=== PATIENT | female | born 1940 | race Caucasian/White ===

== ENCOUNTER 2019-03-01 13:53 | Observation (INO) ==
[2019-03-01 14:37] LABS: Basophils # 0.1 10*3/uL (0.0-0.2); Basophils % 0.6 % (0.0-0.8); Eosinophils # 0.4 10*3/uL (0.0-0.87); Eosinophils % 3.5 % (0.00-10.9); Hemoglobin 12.4 GM/DL (12.0-16.0); Immature Granulocytes % 0.4 %; Immature Granulocytes Absolute 0.04 #; Lymphocytes # 1.4 10*3/uL (1.4-4.0); Lymphocytes % 13.2 % (21.3-54.2); Mean Corpuscular Volume 90.5 FL (87-102); Mean Platelet Volume 9.9 FL (9.6-12.0); Monocytes % 7.5 % (1.7-12.7); Neutrophils % 74.8 % (38.7-73.9); Platelet Count 330 T/CUMM (130-400); Red Blood Count 4.42 MC/CUMM (3.8-5.5); White Blood Count 10.3 T/CUMM (4-12)
[2019-03-01 14:58] LABS: PT Patient Result 10.6 SECS
[2019-03-01 15:11] LABS: Alanine Aminotransferase 17 U/L (13-56); Alkaline Phosphatase 79 U/L (45-117); Aspartate Amino Transferase 18 U/L (0-37); Blood Urea Nitrogen 11 MG/DL (7-18); Calcium 9.4 MG/DL (8.5-10.1); Glucose 318 MG/DL (74-106); Osmolality,Calculated 283.8 MOS/KG (273-304); Total Protein 7.6 G/DL (6.4-8.3); Troponin I < 0.015 NG/ML (0.00-0.045)
[2019-03-01] MEDS ORDERED: SODIUM CHLORIDE 0.9% 1,000 ML IV SCH (18:56)
[2019-03-01] MEDS ORDERED: DEXTROSE 50% 25 GM/50 ML VIAL IV PRN (18:56)
[2019-03-01] MEDS ORDERED: ACETAMINOPHEN 325 MG TABLET PO PRN ×2 (18:56→19:32)
[2019-03-01] MEDS ORDERED: ONDANSETRON 4 MG/2 ML VIAL IV PRN (18:56)
[2019-03-01] MEDS ORDERED: GLUCAGON 1 MG VIAL IM PRN (18:56)
[2019-03-01] MEDS ORDERED: ALBUTEROL 2.5 MG/3 ML NEB RESP TX PRN (19:32)
[2019-03-01] MEDS ORDERED: NITROGLYCERIN SL 0.4 MG TABLET SL PRN (19:32)
[2019-03-01] MEDS ORDERED: MAGNESIUM SULF RIDER 2 GM in PREMIX 1 EACH IV ONE (19:52)
[2019-03-01 21:30] LABS: Apearance,Urine CLEAR (Clear); Bacteria,Urine Occasional /HPF (Few); Bilirubin,Urine Negative (Negative); Blood, Urine Negative (Negative); Glucose,Urine (UA) 150 mg/dL (Negative); Hyaline Casts,Urine 4 /LPF (0-3); Ketones,Urine Negative (Negative); Mucus,Urine Occasional /LPF (Occasional); Nitrite,Urine Negative (Negative); Protein,Urine Negative; RBC,Urine <1 /HPF (0-4); Squamous Epithelial Cell,Urine Occasional /HPF (0-10); Urine Color Yellow (Yellow); Urine Specific Gravity 1.014 (1.001-1.035); Urine Urobilinogen < 2.0 EU/DL (0.2-1.0); WBC,Urine <1 /HPF (0-6)
[2019-03-01] MEDS: INSULIN LISPRO 100 UNIT/ML SUBCUT SCH (21:56)
[2019-03-01] MEDS: ROSUVASTATIN 10 MG TABLET PO SCH (21:57)
[2019-03-01] MEDS: CILOSTAZOL 50 MG TABLET PO SCH (21:57)
[2019-03-01] MEDS: POTASSIUM CHLORIDE 10 MEQ TABLET PO SCH (21:57)
[2019-03-01] MEDS: DOCUSATE SODIUM 100 MG CAPSULE PO SCH (21:57)
[2019-03-01] MEDS: INSULIN GLARGINE 100 UNIT/ML SUBCUT SCH (21:58)
[2019-03-01] MEDS: MAGNESIUM SULF INJ 2 GM, POTASSIUM CHLORIDE INJ 20 MEQ in SODIUM CHLORIDE 0.9% 1,000 ML IV SCH (22:00)
[2019-03-02 04:28] LABS: Basophils # 0.1 10*3/uL (0.0-0.2); Basophils % 0.6 % (0.0-0.8); Eosinophils # 0.4 10*3/uL (0.0-0.87); Eosinophils % 3.9 % (0.00-10.9); Hematocrit 36.4 VOL% (35.7-47.0); Hemoglobin 11.4 GM/DL (12.0-16.0); Immature Granulocytes % 0.4 %; Immature Granulocytes Absolute 0.04 #; Lymphocytes # 2.1 10*3/uL (1.4-4.0); Lymphocytes % 20.6 % (21.3-54.2); Mean Corpuscular HGB Conc 31.3 GM/DL (32-36); Mean Corpuscular Volume 89.9 FL (87-102); Mean Platelet Volume 10.3 FL (9.6-12.0); Monocytes % 9.9 % (1.7-12.7); Neutrophils % 64.6 % (38.7-73.9); Platelet Count 293 T/CUMM (130-400); Red Blood Count 4.05 MC/CUMM (3.8-5.5); Red Cell Distribution Width 13.1 % (9.3-17.3); White Blood Count 10.2 T/CUMM (4-12)
[2019-03-02] MEDS: MAGNESIUM SULF INJ 2 GM, POTASSIUM CHLORIDE INJ 20 MEQ in SODIUM CHLORIDE 0.9% 1,000 ML IV SCH ×3 (04:30→21:13)
[2019-03-02 04:55] LABS: Albumin 3.1 G/DL (3.4-5.0); Bilirubin,Total 0.4 MG/DL (0.2-1.0); Calcium 8.5 MG/DL (8.5-10.1); Free T4 (Free Thyroxine) 1.32 NG/DL (0.76-1.46); Risk Ratio 2.19; Thyroid Stimulating Hormone 0.995 uIU/ml (0.358-3.74); VLDL CHOLESTEROL 23.2 MG/DL
[2019-03-02 05:40] LABS: Sedimentation Rate-Westergren 22 MM/HR (0-30)
[2019-03-02] MEDS: LEVOTHYROXINE 50 MCG TABLET PO SCH (06:38)
[2019-03-02] MEDS: INSULIN LISPRO 100 UNIT/ML SUBCUT SCH ×4 (08:07→21:09)
[2019-03-02] MEDS: PREGABALIN 25 MG CAPSULE PO SCH ×2 (09:44→21:08)
[2019-03-02] MEDS: glipiZIDE 5 MG TABLET PO SCH (09:47)
[2019-03-02] MEDS: LOSARTAN 25 MG TABLET PO SCH (09:47)
[2019-03-02] MEDS: CILOSTAZOL 50 MG TABLET PO SCH ×2 (09:47→21:07)
[2019-03-02] MEDS: DOCUSATE SODIUM 100 MG CAPSULE PO SCH ×2 (09:47→20:57)
[2019-03-02] MEDS: POTASSIUM CHLORIDE 10 MEQ TABLET PO SCH ×2 (09:47→21:08)
[2019-03-02] MEDS: ASPIRIN CHEW 81 MG TABLET PO SCH (09:47)
[2019-03-02] MEDS: ISOSORBIDE MONONITRATE 30 MG TABLET PO SCH (09:47)
[2019-03-02] MEDS: PANTOPRAZOLE 40 MG TABLET PO SCH (09:47)
[2019-03-02] MEDS: CLOPIDOGREL 75 MG TABLET PO SCH (09:47)
[2019-03-02] MEDS: CHOLECALCIFEROL 5,000 UNIT TABLET PO SCH (09:48)
[2019-03-02] MEDS: amLODIPine 5 MG TABLET PO PRN (12:42)
[2019-03-02] MEDS ORDERED: glipiZIDE 5 MG TABLET PO SCH (19:00)
[2019-03-02] MEDS: ATENOLOL 50 MG TABLET PO SCH (21:07)
[2019-03-02] MEDS: ROSUVASTATIN 10 MG TABLET PO SCH (21:08)
[2019-03-02] MEDS: INSULIN GLARGINE 100 UNIT/ML SUBCUT SCH (21:10)
[2019-03-02] MEDS: ESCITALOPRAM 10 MG TABLET PO SCH (21:11)
[2019-03-03] MEDS: amLODIPine 5 MG TABLET PO PRN (00:20)
[2019-03-03 05:14] LABS: Basophils # 0.1 10*3/uL (0.0-0.2); Basophils % 0.8 % (0.0-0.8); Eosinophils # 0.5 10*3/uL (0.0-0.87); Eosinophils % 5.2 % (0.00-10.9); Hematocrit 34.8 VOL% (35.7-47.0); Hemoglobin 10.8 GM/DL (12.0-16.0); Immature Granulocytes % 0.3 %; Immature Granulocytes Absolute 0.03 #; Lymphocytes # 1.8 10*3/uL (1.4-4.0); Lymphocytes % 19.7 % (21.3-54.2); Mean Corpuscular Volume 90.9 FL (87-102); Mean Platelet Volume 10.4 FL (9.6-12.0); Monocytes % 9.7 % (1.7-12.7); Neutrophils % 64.3 % (38.7-73.9); Platelet Count 292 T/CUMM (130-400); Red Blood Count 3.83 MC/CUMM (3.8-5.5); Red Cell Distribution Width 13.2 % (9.3-17.3)
[2019-03-03 06:02] LABS: Bilirubin,Total 0.5 MG/DL (0.2-1.0); Total Protein 6.1 G/DL (6.4-8.3)
[2019-03-03] MEDS: LEVOTHYROXINE 50 MCG TABLET PO SCH (06:17)
[2019-03-03] MEDS: DOCUSATE SODIUM 100 MG CAPSULE PO SCH ×2 (09:00→21:07)
[2019-03-03] MEDS: ISOSORBIDE MONONITRATE 30 MG TABLET PO SCH (09:00)
[2019-03-03] MEDS: PREGABALIN 25 MG CAPSULE PO SCH ×2 (09:00→21:05)
[2019-03-03] MEDS: CHOLECALCIFEROL 5,000 UNIT TABLET PO SCH (09:00)
[2019-03-03] MEDS: ASPIRIN CHEW 81 MG TABLET PO SCH (09:00)
[2019-03-03] MEDS: CILOSTAZOL 50 MG TABLET PO SCH ×2 (09:00→21:04)
[2019-03-03] MEDS ORDERED: FUROSEMIDE 20 MG TABLET PO SCH (09:00)
[2019-03-03] MEDS: LOSARTAN 25 MG TABLET PO SCH (09:01)
[2019-03-03] MEDS: CLOPIDOGREL 75 MG TABLET PO SCH (09:01)
[2019-03-03] MEDS: MAGNESIUM SULF INJ 2 GM, POTASSIUM CHLORIDE INJ 20 MEQ in SODIUM CHLORIDE 0.9% 1,000 ML IV SCH ×2 (09:02→15:07)
[2019-03-03] MEDS: glipiZIDE 5 MG TABLET PO SCH (09:02)
[2019-03-03] MEDS: POTASSIUM CHLORIDE 10 MEQ TABLET PO SCH ×2 (09:02→21:05)
[2019-03-03] MEDS: PANTOPRAZOLE 40 MG TABLET PO SCH (09:02)
[2019-03-03] MEDS: INSULIN LISPRO 100 UNIT/ML SUBCUT SCH ×4 (09:13→21:06)
[2019-03-03] MEDS: ATENOLOL 50 MG TABLET PO SCH (21:04)
[2019-03-03] MEDS: ESCITALOPRAM 10 MG TABLET PO SCH (21:05)
[2019-03-03] MEDS: INSULIN GLARGINE 100 UNIT/ML SUBCUT SCH (21:06)
[2019-03-04 07:35] VITALS: BP 143/63
[2019-03-04] MEDS: CHOLECALCIFEROL 5,000 UNIT TABLET PO SCH (09:03)
[2019-03-04] MEDS: POTASSIUM CHLORIDE 10 MEQ TABLET PO SCH (09:04)
[2019-03-04] MEDS: CLOPIDOGREL 75 MG TABLET PO SCH (09:04)
[2019-03-04] MEDS: LOSARTAN 25 MG TABLET PO SCH (09:04)
[2019-03-04] MEDS: LEVOTHYROXINE 50 MCG TABLET PO SCH (09:04)
[2019-03-04] MEDS: CILOSTAZOL 50 MG TABLET PO SCH (09:04)
[2019-03-04] MEDS: glipiZIDE 5 MG TABLET PO SCH (09:05)
[2019-03-04] MEDS: ASPIRIN CHEW 81 MG TABLET PO SCH (09:05)
[2019-03-04] MEDS: DOCUSATE SODIUM 100 MG CAPSULE PO SCH (09:05)
[2019-03-04] MEDS: PANTOPRAZOLE 40 MG TABLET PO SCH (09:05)
[2019-03-04] MEDS: ISOSORBIDE MONONITRATE 30 MG TABLET PO SCH (09:12)
[2019-03-04] MEDS: PREGABALIN 25 MG CAPSULE PO SCH (09:17)
[2019-03-04] MEDS: INSULIN LISPRO 100 UNIT/ML SUBCUT SCH (10:36)
== END 2019-03-04 10:57 | disposition home or self-care (01) ==
LOC: N.EDINP 13:53 → N.ED 13:53 → N.2E 18:38
PROVIDERS: ADMIT Family Medicine; ATTEND Family Medicine